=== PATIENT | male | born 1990 | race Caucasian/White ===

== ENCOUNTER → 2023-03-02 | Outpatient (CLI) | payer BC, SELFPAY ==
--- OUTSIDE RECORDS SUMMARY | 2023-03-02 12:21 | XMS RPT_ITS | CCD ---
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 Role Phone Linwood Nuñez Unavailable [phone] Chrissie Tatum Primary Care Provider RONALD CROOKS Attending Unavailable CHILINWOOD BOB Primary Care Unavailable LINWOOD NUÑEZ Attending Unavailable ZAPCHRISSIE ALSTON Attending Unavailabl e [facility] LINWOOD LEARY Primary Care Unavailable ZAPCHRISSIE ALSTON Attending Unavailabl e LINWOOD NUÑEZ Primary Care Unavailable RONALD CROOKS Attending Unavailable CHILINWOOD BOB Primary Care Unavailable ZAPCHRISSIE ALSTON Attending Unavailabl e ZAPPACHRISSIE Primary Care Unavailabl e Medications Completed/Discontinued Medications Medication Drug Class(es) Dates Sig (Normalized) Sig (Original) baclofen 20 mg oral tablet (3 sources) gamma-Aminobutyri c Acid-ergic Agonist Start: 02-22-2018 End: 03-24-2018 take 1 tablet by mouth at bedtime baclofen (LIORESAL) 20 MG tablet Indications: Acute intractable headache, unspecified headache type Take 1 (one) tablet (20 mg total) by mouth at bedtime . 30 tablet 0 02/22/2018 03/06/2018 Discontinued predniSONE (3 sources) Start: 02-22-2018 End: 03-06-2018 predniSONE (DELTASONE) 10 MG tablet Indications: Acute intractable headache, unspecified headache type Take 4 tablets for three days, 3 tablets for 3 days, 2 tablets for 3 days, 1 tablet for 3 days and then every other day until gone. . 31 tablet 0 02/22/2018 03/06/2018 Discontinued Problems Problem Classification Problem Date Documented Da te Episodic/Chronic Essential hypertension (4 sources) Hypertensive disorder; Translations: [Essential (primary) hypertension] Onset: 04-22-2018 04-22-2018 Chronic Headache; including migraine (4 sources) Migraine; Translations: [Other migraine, not intractable, without status migrainosus] Onset: 04-22-2018 04-22-2018 Chronic Headache; including migraine (8 sources) Headache; Translations: [Headache] Onset: 02-22-2018 02-22-2018 Episodic Residual codes; unclassified (3 sources) Altered mental status; Translations: [Altered mental status, unspecified altered mental status type] Onset: 03-06-2018 03-06-2018 Episodic Residual codes; unclassified (2 sources) Altered mental status, unspecified; Translations: [Altered mental status, unspecified] Onset: 03-06-2018 Episodic Vital Signs Date Time Vital Sign Value Performing Clinician Keturah almeiday 04-22-2018 14:38-0400 BP Diastolic 78 mm[Hg] [facility] 04-22-2018 14:38-0400 BP Systolic 130 mm[Hg] [facility] 04-22-2018 13:58-0400 BMI (Body Mass Index) 39.71 kg/m2 [facility] 04-22-2018 13:58-0400 Body Temperature 97.9 [degF] [facility] 04-22-2018 13:58-0400 Height 185.4 cm [facility] 04-22-2018 13:58-0400 Pulse (Heart Rate) 86 /min [facility] 04-22-2018 13:58-0400 Pulse Oximetry 98 % [facility] 04-22-2018 13:58-0400 Respiratory Rate 16 /min [facility] 04-22-2018 13:58-0400 Weight 136.53 kg [facility] 03-06-2018 13:51-0500 BMI (Body Mass Index) 42.04 kg/m2 [facility] 03-06-2018 13:51-0500 Body Temperature 98.1 [degF] [facility] 03-06-2018 13:51-0500 BP Diastolic 93 mm[Hg] [facility] 03-06-2018 13:51-0500 BP Systolic 132 mm[Hg] [facility] 03-06-2018 13:51-0500 Height 182.9 cm [facility] 03-06-2018 13:51-0500 Pulse (Heart Rate) 71 /min Chrissie Tatum [facility] 03-06-2018 13:51-0500 Pulse Oximetry 97 % Chrissie Tatum [facility] 03-06-2018 13:51-0500 Respiratory Rate 16 /min Chrissie Tatum [facility] 03-06-2018 13:51-0500 Weight 140.62 kg Chrissie Tatum [facility] 02-22-2018 13:12-0500 BMI (Body Mass Index) 41.37 kg/m2 Chrissie Tatum [facility] 02-22-2018 13:12-0500 Body Temperature 98.1 [degF] Chrissie Tatum [facility] 02-22-2018 13:12-0500 BP Diastolic 83 mm[Hg] Chrissie Tatum [facility] 02-22-2018 13:12-0500 BP Systolic 130 mm[Hg] Chrissie Tatum [facility] 02-22-2018 13:12-0500 Height 182.9 cm Chrissie Tatum [facility] 02-22-2018 13:12-0500 Pulse (Heart Rate) 84 /min Chrissie Tatum [facility] 02-22-2018 13:12-0500 Pulse Oximetry 97 % Chrissie Tatum [facility] 02-22-2018 13:12-0500 Respiratory Rate 16 /min Chrissie Tatum [facility] 02-22-2018 13:12-0500 Weight 138.35 kg Chrissie Tatum [facility] Encounters Encounter Date Encounter Type Care Provider Facility Start: 04-22-2018 End: 05-02-2018 Patient encounter procedure CHRISSIE TATUM [facility] Start: 04-22-2018 End: 04-22-2018 Office outpatient visit 15 minutes Chrissie Tatum Work Phone: [facility] Plan of Treatment Date Care Activity Detail Author Start: 02-12-2022 Tetanus vaccination TETANUS EVERY 10 YR [facility] Start: 07-22-2018 End: 07-22-2018 Office Visit 07/22/2018 Office Visit Primary Care Chrissie Tatum PA-C [address] [place] [address] [phone] [facility] Start: 04-22-2018 End: 04-22-2018 Ambulatory 04/22/2018 Office Visit Primary Care Chrissie Tatum PA-C [address] [place] [address] [phone] [facility] Payers Date Payer Category Payer Unknown [employer]/PATSY/HMO/PPO xxxxxxxxxxxx 2017-Present xxxxxxxxxxxx [id number] 2017 Unknown [id number] 1989 Unknown [id number] 1989 Unknown [id number] 1989 Unknown [id number] 1989 Unknown [id number] 1989 Unknown [id number] Unknown [employer]CIAL [id number] Effective for all dates [id number] Unknown [id number] Social History Date Type Detail Facility Start: 02-22-2018 End: 04-22-2018 Tobacco smoking status COIS Light tobacco smoker [facility] Not on file [facility] Start: 02-22-2018 Tobacco Comment 8-12 cigarettes/day [facility] Goals Date Patient Goal Desired Activity /State Instructions * Patient Instructions - Chrissie Tatum PA-C - 02/22/2018 1:48 PM EST Formatting of this note may be different from the original. Headache: Care Instructions Your Care Instructions Headaches have many possible causes. Most headaches aren't a sign of a more serious problem, and they will get better on their own. Home treatment may help you feel better faster. The doctor has checked you carefully, but problems can develop later. If you notice any problems ornew symptoms, get medical treatment right away. Follow-up care is a akhtar part of your treatment and safety. Be sure to make and go to all appointments, and call your doctor if you are having problems. It's also a good idea to know your test resultsand keep a list of the medicines you take. How can you care for yourself at home? Do not drive if you have taken a prescription pain medicine. Rest in a quiet, dark room until your headache is gone. Close your eyes and try to relax or go to sleep. Don't watch TV or read. Put a cold, moist cloth or cold pack on the painful area for 10 to 20 minutes at a time. Put a thincloth between the cold pack and your skin. Use a warm, moist towel or a heating pad set on low to relax tight shoulder and neck muscles. Have someone gently massage your neck and shoulders. Take pain medicines exactly as directed. ? If the doctor gave you a prescription medicine for pain, take it as prescribed. ? If you are not taking a prescription pain medicine, ask your doctor if you can take an trgs-vbl-hbdcklf medicine. Be careful not to take pain medicine more often than the instructions allow, because you may get worse or more frequent headaches when the medicine wears off. Do not ignore new symptoms that occur with a headache, such as a fever, weakness or numbness, vision changes, or confusion. These may be signs of a more serious problem. To prevent headaches Keep a headache diary so you can figure out what triggers your headaches. Avoiding triggers may help you prevent headaches. Record when each headache began, how long it lasted, and what the pain was like (throbbing, aching, stabbing, or dull). Write down any other symptoms you had with the headache, such as nausea, flashing lights or dark spots, or sensitivity to bright light or loud noise. Note if the headache occurred near your period. List anything that might have triggered the headache, such as certain foods (chocolate, cheese, wine) or odors, smoke, bright light, stress, or lack of sleep. Find healthy ways to deal with stress. Headaches are most common during or right after stressful times. Take time to relax before and after you do something that has caused a headache in the past. Try to keep your muscles relaxed by keeping good posture. Check your jaw, face, neck, and shoulder muscles for tension, and try relaxing them. When sitting at a desk, change positions often, and stretch for 30 seconds each hour. Get plenty of sleep and exercise. Eat regularly and well. Long periods without food can trigger a headache. Treat yourself to a massage. Some people find that regular massages are very helpful in relieving tension. Limit caffeine by not drinking too much coffee, tea, or soda. But don't quit caffeine suddenly, because that can also give you headaches. Reduce eyestrain from computers by blinking frequently and looking away from the computer screen every so often. Make sure you have proper eyewear and that your monitor is set up properly, about an arm's length away. Seek help if you have depression or anxiety. Your headaches may be linked to these conditions. Treatment can both prevent headaches and help with symptoms of anxiety or depression. When should you call for help? Call 911 anytime you think you may need emergency care. For example, call if: You have signs of a stroke. These may include: ? Sudden numbness, paralysis, or weakness in your face, arm, or leg, especially on only one side ofyour body. ? Sudden vision changes. ? Sudden trouble speaking. ? Sudden confusion or trouble understanding simple statements. ? Sudden problems with walking or balance. ? A sudden, severe headache that is different from past headaches. Call your doctor now or seek immediate medical care if: You have a new or worse headache. Your headache gets much worse. Where can you learn more? Log into your personal health record on https://[employer] and enter M271 in the Education box to learn more about Headache: Care Instructions. Current as of: July 15, 2017 Content Version: 11.20051732-1085 [employer]. Care instructions adapted under license by your healthcare professional. If you have questions about a medical condition or this instruction, always ask your healthcare professional. [employer] disclaims any warranty or liability for your use of this information. Neck Pain: Care Instructions Your Care Instructions You can have neck pain anywhere from the bottom of your head to the top of your shoulders. It can spread to the upper back or arms. Injuries, painting a ceiling, sleeping with your neck twisted, staying in one position for too long, and many other activities can cause neck pain. Most neck pain gets better with home care. Your doctor may recommend medicine to relieve pain or relax your muscles. He or she may suggest exercise and physical therapy to increase flexibility and relieve stress. You may need to wear a special (cervical) collar to support your neck for a day or two. Follow-up care is a akhtar part of your treatment and safety. Be sure to make and go to all appointments, and call your doctor if you are having problems. It's also a good idea to know your test resultsand keep a list of the medicines you take. How can you care for yourself at home? Try using a heating pad on a low or medium setting for 15 to 20 minutes every 2 or 3 hours. Try a warm shower in place of one session with the heating pad. You can also try an ice pack for 10 to 15 minutes every 2 to 3 hours. Put a thin cloth between the ice and your skin. Take pain medicines exactly as directed. ? If the doctor gave you a prescription medicine for pain, take it as prescribed. ? If you are not taking a prescription pain medicine, ask your doctor if you can take an mmxk-qss-mjvqndr medicine. If your doctor recommends a cervical collar, wear it exactly as directed. When should you call for help? Call your doctor now or seek immediate medical care if: You have new or worsening numbness in your arms, buttocks or legs. You have new or worsening weakness in your arms or legs. (This could make it hard to stand up.) You lose control of your bladder or bowels. Watch closely for changes in your health, and be sure to contact your doctor if: Your neck pain is getting worse. You are not getting better after 1 week. You do not get better as expected. Where can you learn more? Log into your personal health record on https://[email or web address] and enter V723 in the Education box to learn more about Neck Pain: Care Instructions. Current as of: November 01, 2017 Content Version: 11.9 9214-8770 [employer]. Care instructions adapted under license by your healthcare professional. If you have questions about a medical condition or this instruction, always ask your healthcare professional. [employer] disclaims any warranty or liability for your use of this information. Neck: Exercises Your Care Instructions Here are some examples of typical rehabilitation exercises for your condition. Start each exercise slowly. Ease off the exercise if you start to have pain. Your doctor or physical therapist will tell you when you can start these exercises and which ones will work best for you. How to do the exercises Neck stretch 1. This stretch works best if you keep your shoulder down as you lean away from it. To help you remember to do this, start by relaxing your shoulders and lightly holding on to your thighs or your chair. 2. Tilt your head toward your shoulder and hold for 15 to 30 seconds. Let the weight of your head stretch your muscles. 3. If you would like a little added stretch, use your hand to gently and steadily pull your head toward your shoulder. For example, keeping your right shoulder down, lean your head to the left. 4. Repeat 2 to 4 times toward each shoulder. Diagonal neck stretch 1. Turn your head slightly toward the direction you will be stretching, and tilt your head diagonally toward your chest and hold for 15 to 30 seconds. 2. If you would like a little added stretch, use your hand to gently and steadily pull your head forward on the diagonal. 3. Repeat 2 to 4 times toward each side. Dorsal glide stretch 1. Sit or stand tall and look straight ahead. 2. Slowly tuck your chin as you glide your head backward over your body 3. Hold for a count of 6, and then relax for up to 10 seconds. 4. Repeat 8 to 12 times. Chest and shoulder stretch 1. Sit or stand tall and glide your head backward as in the dorsal glide stretch. 2. Raise both arms so that your hands are next to your ears. 3. Take a deep breath, and as you breathe out, lower your elbows down and behind your back. You will feel your shoulder blades slide down and together, and at the same time you will feel a stretch across your chest and the front of your shoulders. 4. Hold for about 6 seconds, and then relax for up to 10 seconds. 5. Repeat 8 to 12 times. Strengthening: Hands on head 1. Move your head backward, forward, and side to side against gentle pressure from your hands, holding each position for about 6 seconds. 2. Repeat 8 to 12 times. Follow-up care is a akhtar part of your treatment and safety. Be sure to make and go to all appointments, and call your doctor if you are having problems. It's also a good idea to know your test resultsand keep a list of the medicines you take. Where can you learn more? Log into your personal health record on https://[employer] and enter P975 in the Education box to learn more about Neck: Exercises. Current as of: November 01, 2017 Content Version: 11.9 1114-1976 [employer]. Care instructions adapted under license by your healthcare professional. If you have questions about a medical condition or this instruction, always ask your healthcare professional. [employer] disclaims any warranty or liability for your use of this information. Migraine Headache: Care Instructions Your Care Instructions Migraines are painful, throbbing headaches that often start on one side of the head. They may causenausea and vomiting and make you sensitive to light, sound, or smell. Without treatment, migraines can last from 4 hours to a few days. Medicines can help prevent migraines or stop them after they have started. Your doctor can help you find which ones work best for you. Follow-up care is a akhtar part of your treatment and safety. Be sure to make and go to all appointments, and call your doctor if you are having problems. It's also a good idea to know your test resultsand keep a list of the medicines you take. How can you care for yourself at home? Do not drive if you have taken a prescription pain medicine. Rest in a quiet, dark room until your headache is gone. Close your eyes, and try to relax or go to sleep. Don't watch TV or read. Put a cold, moist cloth or cold pack on the painful area for 10 to 20 minutes at a time. Put a thincloth between the cold pack and your skin. Use a warm, moist towel or a heating pad set on low to relax tight shoulder and neck muscles. Have someone gently massage your neck and shoulders. Take your medicines exactly as prescribed. Call your doctor if you think you are having a problem with your medicine. You will get more details on the specific medicines your doctor prescribes. Be careful not to take pain medicine more often than the instructions allow. You could get worse ormore frequent headaches when the medicine wears off. To prevent migraines Keep a headache diary so you can figure out what triggers your headaches. Avoiding triggers may help you prevent headaches. Record when each headache began, how long it lasted, and what the pain was like. (Was it throbbing, aching, stabbing, or dull?) Write down any other symptoms you had with the h johndache, such as nausea, flashing lights or dark spots, or sensitivity to bright light or loud noise. Note if the headache occurred near your period. List anything that might have triggered the headache. Triggers may include certain foods (chocolate, cheese, wine) or odors, smoke, bright light, stress, or lack of sleep. If your doctor has prescribed medicine for your migraines, take it as directed. You may have medicine that you take only when you get a migraine and medicine that you take all the time to help prevent migraines. ? If your doctor has prescribed medicine for when you get a headache, take it at the first sign of a migraine, unless your doctor has given you other instructions. ? If your doctor has prescribed medicine to prevent migraines, take it exactly as prescribed. Call your doctor if you think you are having a problem with your medicine. Find healthy ways to deal with stress. Migraines are most common during or right after stressful times. Take time to relax before and after you do something that has caused a migraine in the past. Try to keep your muscles relaxed by keeping good posture. Check your jaw, face, neck, and shoulder muscles for tension. Try to relax them. When you sit at a desk, change positions often. And make sure to stretch for 30 seconds each hour. Get plenty of sleep and exercise. Eat meals on a regular schedule. Avoid foods and drinks that often trigger migraines. These includechocolate, alcohol (especially red wine and port), aspartame, monosodium glutamate (MSG), and some additives found in foods (such as hot dogs, benton, cold cuts, aged cheeses, and pickled foods). Limit caffeine. Don't drink too much coffee, tea, or soda. But don't quit caffeine suddenly. That can also give you migraines. Do not smoke or allow others to smoke around you. If you need help quitting, talk to your doctor about stop-smoking programs and medicines. These can increase your chances of quitting for good. If you are taking control pills or hormone therapy, talk to your doctor about whether they are triggering your migraines. When should you call for help? Call 911 anytime you think you may need emergency care. For example, call if: You have signs of a stroke. These may include: ? Sudden numbness, paralysis, or weakness in your face, arm, or leg, especially on only one side ofyour body. ? Sudden vision changes. ? Sudden trouble speaking. ? Sudden confusion or trouble understanding simple statements. ? Sudden problems with walking or balance. ? A sudden, severe headache that is different from past headaches. Call your doctor now or seek immediate medical care if: You have new or worse nausea and vomiting. You have a new or higher fever. Your headache gets much worse. Watch closely for changes in your health, and be sure to contact your doctor if: You are not getting better after 2 days (48 hours). Where can you learn more? Log into your personal health record on https://[employer] and enter U690 in the Education box to learn more about Migraine Headache: Care Instructions. Current as of: July 15, 2017 Content Version: .[id number] [employer]. Care instructions adapted under license by your healthcare professional. If you have questions about a medical condition or this instruction, always ask your healthcare professional. [employer] disclaims any warranty or liability for your use of this information. Problem List Items Addressed This Visit Other Acute intractable headache - Primary Today you are here to establish with our office. Your main concern today is the headache you have been experiencing. I am fairly certain this is all related to your job. 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 I would like you to take the medication as discussed duringthe visit. The Prednisone is a steroid that works on areas of inflammation. In this case, your neck. The Baclofen is a muscle relaxer, this will help you relax at night and help you sleep comfortably. Muscle relaxers are NOT to be used when operating machinery or when you attention is necessary on a task. They make you drowsy. Please note that it will take 6-8 weeks to fully recover. It is important that you do the exercisesprovided during the visit today. Should any new symptoms arise, I would like to see you back sooner. Otherwise, lets see you back in 8 weeks. Please fast for this visit as I would like to do blood work at that time. Thank you. Relevant Medications predniSONE (DELTASONE) 10 MG tablet baclofen (LIORESAL) 20 MG tablet in this encounter* Patient Instructions* Chrissie Tatum PA-C - 03/06/2018 2:20 PM EST Headache: Care Instructions Your Care Instructions Headaches have many possible causes. Most headaches aren't a sign of a more serious problem, and they will get better on their own. Home treatment may help you feel better faster. The doctor has checked you carefully, but problems can develop later. If you notice any problems ornew symptoms, get medical treatment right away. Follow-up care is a akhtar part of your treatment and safety. Be sure to make and go to all appointments, and call your doctor if you are having problems. It's also a good idea to know your test resultsand keep a list of the medicines you take. How can you care for yourself at home? Do not drive if you have taken a prescription pain medicine. Rest in a quiet, dark room until your headache is gone. Close your eyes and try to relax or go to sleep. Don't watch TV or read. Put a cold, moist cloth or cold pack on the painful area for 10 to 20 minutes at a time. Put a thincloth between the cold pack and your skin. Use a warm, moist towel or a heating pad set on low to relax tight shoulder and neck muscles. Have someone gently massage your neck and shoulders. Take pain medicines exactly as directed. ? If the doctor gave you a prescription medicine for pain, take it as prescribed. ? If you are not taking a prescription pain medicine, ask your doctor if you can take an ctly-ruj-vlqyypf medicine. Be careful not to take pain medicine more often than the instructions allow, because you may get worse or more frequent headaches when the medicine wears off. Do not ignore new symptoms that occur with a headache, such as a fever, weakness or numbness, vision changes, or confusion. These may be signs of a more serious problem. To prevent headaches Keep a headache diary so you can figure out what triggers your headaches. Avoiding triggers may help you prevent headaches. Record when each headache began, how long it lasted, and what the pain was like (throbbing, aching, stabbing, or dull). Write down any other symptoms you had with the headache, such as nausea, flashing lights or dark spots, or sensitivity to bright light or loud noise. Note if the headache occurred near your period. List anything that might have triggered the headache, such as certain foods (chocolate, cheese, wine) or odors, smoke, bright light, stress, or lack of sleep. Find healthy ways to deal with stress. Headaches are most common during or right after stressful times. Take time to relax before and after you do something that has caused a headache in the past. Try to keep your muscles relaxed by keeping good posture. Check your jaw, face, neck, and shoulder muscles for tension, and try relaxing them. When sitting at a desk, change positions often, and stretch for 30 seconds each hour. Get plenty of sleep and exercise. Eat regularly and well. Long periods without food can trigger a headache. Treat yourself to a massage. Some people find that regular massages are very helpful in relieving tension. Limit caffeine by not drinking too much coffee, tea, or soda. But don't quit caffeine suddenly, because that can also give you headaches. Reduce eyestrain from computers by blinking frequently and looking away from the computer screen every so often. Make sure you have proper eyewear and that your monitor is set up properly, about an arm's length away. Seek help if you have depression or anxiety. Your headaches may be linked to these conditions. Treatment can both prevent headaches and help with symptoms of anxiety or depression. When should you call for help? Call 911 anytime you think you may need emergency care. For example, call if: You have signs of a stroke. These may include: ? Sudden numbness, paralysis, or weakness in your face, arm, or leg, especially on only one side ofyour body. ? Sudden vision changes. ? Sudden trouble speaking. ? Sudden confusion or trouble understanding simple statements. ? Sudden problems with walking or balance. ? A sudden, severe headache that is different from past headaches. Call your doctor now or seek immediate medical care if: You have a new or worse headache. Your headache gets much worse. Where can you learn more? Log into your personal health record on [email or web address] and enter M271 in the Education box to learn more about Headache: Care Instructions. Current as of: July 15, 2017 Content Version: [id number] [employer]. Care instructions adapted under license by your healthcare professional. If you have questions about a medical condition or this instruction, always ask your healthcare professional. [employer] disclaims any warranty or liability for your use of this information. CT Scan of the Head: About This Test What is it? A CT (computed tomography) scan uses X-rays to make detailed pictures of your body and the structures inside your body. A CT scan of the head can give your doctor information about your eyes, the bones of your face and nose, your inner ear, and your brain. During the test, you will lie on a table that is attached to the CT scanner. The CT scanner is a large doughnut-shaped machine. Why is this test done? A CT scan of the head can help find the cause of symptoms that may mean you have a brain injury or bleeding inside your head. It can also find a tumor and damage caused by a stroke and help find the best treatment for the cause of a stroke. How can you prepare for the test? Talk to your doctor about all your health conditions before the test. For example, tell your doctorif: You are or might be . You are allergic to any medicines. You have diabetes. You take metformin. You are . You get nervous in confined spaces. You may need medicine to help you relax. What happens before the test? You may have to take off jewelry, glasses, or hearing aids. Wear comfortable, loose-fitting clothes. You may have contrast material (dye) put into your arm through a tube called an IV. Contrast material helps doctors see specific organs, blood vessels, and most tumors. What happens during the test? You will lie on a table that is attached to the CT scanner. Straps will hold your head still but your face will not be covered. The table will slide into the round opening of the scanner. The table will move during the scan. The scanner moves inside the doughnut-shaped casing around your body. You will be asked to hold still during the scan. You may be asked to hold your breath for short periods. You may be alone in the scanning room, but a technologist will be watching you through a window andtalking with you during the test. What else should you know about the test? A CT scan does not hurt. If a dye is used, you may feel a quick sting or pinch when the IV is started. The dye may make you feel warm and flushed and give you a metallic taste in your mouth. Some people feel sick to their stomach or get a headache. If you breastfeed and are concerned about whether the dye used in this test is safe, talk to your doctor. Most experts believe that very little dye passes into breast milk and even less is passed on to the baby. But if you prefer, you can store some of your breast milk ahead of time and use it for a day or two after the test. There is a small chance of getting cancer from some types of CT scans. The risk is higher in children, young adults, and people who have many radiation tests. If you are concerned about this risk, talk to your doctor about the benefits and risks of a CT scan and confirm that the test is needed. How long does the test take? The test will take about 30 to 60 minutes. Most of this time is spent getting ready for the scan. The actual test only takes a few minutes. What happens after the test? You will probably be able to go home right away. You can go back to your usual activities right away. Drink plenty of fluids for 24 hours after the test if dye was used, unless your doctor tells you not to. When should you call for help? Watch closely for changes in your health, and be sure to contact your doctor if you have any problems. Follow-up care is a akhtar part of your treatment and safety. Be sure to make and go to all appointments, and call your doctor if you are having problems. It's also a good idea to keep a list of the medicines you take. Ask your doctor when you can expect to have your test results. Where can you learn more? Log into your personal health record on [email or web address] and enter Y628 in the Education box to learn more about CT Scan of the Head: About This Test. Current as of: August 06, 2017 Content Version: 11.9 [id number] [employer]. Care instructions adapted under license by your healthcare professional. If you have questions about a medical condition or this instruction, always ask your healthcare professional. [employer] disclaims any warranty or liability for your use of this information. Problem List Items Addressed This Visit Other Acute intractable headache - Primary At this time, you are having worsening symptoms. This warrants further treatment, which I am strongly suggest he let the Emergency Department provide. We have tried NSAIDs, Triptans, steroids and muscle relaxers. All have failed. Now you are complaining of forgetfulness and worsening headache. You are extremely reluctant to go to the ER, but after discussing this with Dr. Nuñez, we agreed you would go. Your is picking you up to take you as I am strongly urging you not to drive until we have answers. I have called and [facility] is aware that you will be heading over to them once your arrives. It is my strong recommendation that you refrain from any activities that require your f ull attention (ie. Work, driving, operating machinery, etc). Other Visit Diagnoses Screening for diabetes mellitus Screening for hyperlipidemia in this encounter* Patient Instructions* Chrissie Tatum PA-C - 04/22/2018 3:03 PM EDT Problem List Items Addressed This Visit Cardiovascular and Mediastinum Hypertension - Primary Normal BP is 110/70. For every 20 point elevation of the systolic (top number) the risk of complications of elevated BP double. For every 10 points above 70 (bottom number) on the diastolic the risk of complication double. So, someone with a BP of 158/85 is 8 times more likely to have a complication of heart attack, stroke, vascular disease, retinal disease, than someone with a BP of 110/70. Eat meat, vegetables, nuts and seeds, some fruit, very little starch and absolutely no sugar. If you can grow it or kill it, then that's what you should be eating..... Chicken, turkey, fish pork, beef, ALL vegetables and fruit. If it is processed or you can not pronounce the ingredients, do not eat it! Shop the outside perimeter of the grocery store. Listen to your body, if you are hungry all the time you may need to increase your intake of healthyveggies and small healthy snacks. Eat whole, healthy foods and you won't need to count calories. Increase your activity level; the more you move your body the healthier you will be and the better you will feel! Diet and Exercise is not a fad, it really works! Migraine Migraine Headache: Care Instructions Your Care Instructions Migraines are painful, throbbing headaches that often start on one side of the head. They may causenausea and vomiting and make you sensitive to light, sound, or smell. Without treatment, migraines can last from 4 hours to a few days. Medicines can help prevent migraines or stop them after they have started. Your doctor can help you find which ones work best for you. Follow-up care is a akhtar part of your treatment and safety. Be sure to make and go to all appointments, and call your doctor if you are having problems. It's also a good idea to know your test resultsand keep a list of the medicines you take. How can you care for yourself at home? Do not drive if you have taken a prescription pain medicine. Rest in a quiet, dark room until your headache is gone. Close your eyes, and try to relax or go to sleep. Don't watch TV or read. Put a cold, moist cloth or cold pack on the painful area for 10 to 20 minutes at a time. Put a thincloth between the cold pack and your skin. Use a warm, moist towel or a heating pad set on low to relax tight shoulder and neck muscles. Have someone gently massage your neck and shoulders. Take your medicines exactly as prescribed. Call your doctor if you think you are having a problem with your medicine. You will get more details on the specific medicines your doctor prescribes. Be careful not to take pain medicine more often than the instructions allow. You could get worse ormore frequent headaches when the medicine wears off. To prevent migraines Keep a headache diary so you can figure out what triggers your headaches. Avoiding triggers may help you prevent headaches. Record when each headache began, how long it lasted, and what the pain was like. (Was it throbbing, aching, stabbing, or dull?) Write down any other symptoms you had with the h eadache, such as nausea, flashing lights or dark spots, or sensitivity to bright light or loud noise. Note if the headache occurred near your period. List anything that might have triggered the headache. Triggers may include certain foods (chocolate, cheese, wine) or odors, smoke, bright light, stress, or lack of sleep. If your doctor has prescribed medicine for your migraines, take it as directed. You may have medicine that you take only when you get a migraine and medicine that you take all the time to help prevent migraines. ? If your doctor has prescribed medicine for when you get a headache, take it at the first sign of a migraine, unless your doctor has given you other instructions. ? If your doctor has prescribed medicine to prevent migraines, take it exactly as prescribed. Call your doctor if you think you are having a problem with your medicine. Find healthy ways to deal with stress. Migraines are most common during or right after stressful times. Take time to relax before and after you do something that has caused a migraine in the past. Try to keep your muscles relaxed by keeping good posture. Check your jaw, face, neck, and shoulder muscles for tension. Try to relax them. When you sit at a desk, change positions often. And make sure to stretch for 30 seconds each hour. Get plenty of sleep and exercise. Eat meals on a regular schedule. Avoid foods and drinks that often trigger migraines. These includechocolate, alcohol (especially red wine and port), aspartame, monosodium glutamate (MSG), and some additives found in foods (such as hot dogs, benton, cold cuts, aged cheeses, and pickled foods). Limit caffeine. Don't drink too much coffee, tea, or soda. But don't quit caffeine suddenly. That can also give you migraines. Do not smoke or allow others to smoke around you. If you need help quitting, talk to your doctor about stop-smoking programs and medicines. These can increase your chances of quitting for good. If you are taking control pills or hormone therapy, talk to your doctor about whether they are triggering your migraines. When should you call for help? Call 911 anytime you think you may need emergency care. For example, call if: You have signs of a stroke. These may include: ? Sudden numbness, paralysis, or weakness in your face, arm, or leg, especially on only one side ofyour body. ? Sudden vision changes. ? Sudden trouble speaking. ? Sudden confusion or trouble understanding simple statements. ? Sudden problems with walking or balance. ? A sudden, severe headache that is different from past headaches. Call your doctor now or seek immediate medical care if: You have new or worse nausea and vomiting. You have a new or higher fever. Your headache gets much worse. Watch closely for changes in your health, and be sure to contact your doctor if: You are not getting better after 2 days (48 hours). Where can you learn more? Log into your personal health record on [email or web address] and enter U690 in the Education box to learn more about Migraine Headache: Care Instructions. Current as of: July 15, 2017 Content Version: .[id number] [employer]. Care instructions adapted under license by your healthcare professional. If you have questions about a medical condition or this instruction, always ask your healthcare professional. [employer] disclaims any warranty or liability for your use of this information. Low Sodium Diet (2,000 Milligram): Care Instructions Your Care Instructions Too much sodium causes your body to hold on to extra water. This can raise your blood pressure and force your heart and kidneys to work harder. In very serious cases, this could cause you to be put in the hospital. It might even be life- threatening. By limiting sodium, you will feel better and lower your risk of serious problems. The most common source of sodium is salt. People get most of the salt in their diet from canned, prepared, and packaged foods. Fast food and restaurant meals also are very high in sodium. Your doctorwill probably limit your sodium to less than 2,000 milligrams (mg) a day. This limit counts all thesodium in prepared and packaged foods and any salt you add to your food. Follow-up care is a akhtar part of your treatment and safety. Be sure to make and go to all appointments, and call your doctor if you are having problems. It's also a good idea to know your test resultsand keep a list of the medicines you take. How can you care for yourself at home? Read food labels Read labels on cans and food packages. The labels tell you how much sodium is in each serving. Makesure that you look at the serving size. If you eat more than the serving size, you have eaten more sodium. Food labels also tell you the Percent Daily Value for sodium. Choose products with low Percent Daily Values for sodium. Be aware that sodium can come in forms other than salt, including monosodium glutamate (MSG), sodium citrate, and sodium bicarbonate (baking soda). MSG is often added to food. When you eat out,you can sometimes ask for food without MSG or added salt. Buy low-sodium foods Buy foods that are labeled unsalted (no salt added), sodium-free (less than 5 mg of sodium per serving), or low-sodium (less than 140 mg of sodium per serving). Foods labeled reduced-sodium and light sodium may still have too much sodium. Be sure to read the label to see how much sodium you are getting. Buy fresh vegetables, or frozen vegetables without added sauces. Buy low-sodium versions of canned vegetables, soups, and other canned goods. Prepare low-sodium meals Cut back on the amount of salt you use in cooking. This will help you adjust to the taste. Do not add salt after cooking. One teaspoon of salt has about 2,300 mg of sodium. Take the salt shaker off the table. Flavor your food with garlic, lemon juice, onion, vinegar, herbs, and spices. Do not use soy sauce,lite soy sauce, steak sauce, onion salt, garlic salt, celery salt, mustard, or ketchup on your food. Use low-sodium salad dressings, sauces, and ketchup. Or make your own salad dressings and sauces without adding salt. Use less salt (or none) when recipes call for it. You can often use half the salt a recipe calls for without losing flavor. Other foods such as rice, pasta, and grains do not need added salt. Rinse canned vegetables, and cook them in fresh water. This removes some but not all of the salt. Avoid water that is naturally high in sodium or that has been treated with water softeners, which add sodium. Call your local water company to find out the sodium content of your water supply. If youbuy bottled water, read the label and choose a sodium-free brand. Avoid high-sodium foods Avoid eating: ? Smoked, cured, salted, and canned meat, fish, and poultry. ? Ham, benton, hot dogs, and luncheon meats. ? Regular, hard, and processed cheese and regular peanut butter. ? Crackers with salted tops, and other salted snack foods such as pretzels, chips, and salted popcorn. ? Frozen prepared meals, unless labeled low-sodium. ? Canned and dried soups, broths, and bouillon, unless labeled sodium-free or low-sodium. ? Canned vegetables, unless labeled sodium-free or low-sodium. ? Irish fries, pizza, tacos, and other fast foods. ? Pickles, olives, ketchup, and other condiments, especially soy sauce, unless labeled sodium-free or low-sodium. Where can you learn more? Log into your personal health record on [email or web address] and enter V843 in the Education box to learn more about Low Sodium Diet (2,000 Milligram): Care Instructions. Current as of: May 09, 2017 Content Version: 11.9 2473-6515 [employer]. Care instructions adapted under license by your healthcare professional. If you have questions about a medical condition or this instruction, always ask your healthcare professional. [employer] disclaims any warranty or liability for your use of this information. High Blood Pressure: Care Instructions Overview It's normal for blood pressure to go up and down throughout the day. But if it stays up, you have high blood pressure. Another name for high blood pressure is hypertension. Despite what a lot of people think, high blood pressure usually doesn't cause headaches or make youfeel dizzy or lightheaded. It usually has no symptoms. But it does increase your risk of stroke, heart attack, and other problems. You and your doctor will talk about your risks of these problems based on your blood pressure. Your doctor will give you a goal for your blood pressure. Your goal will be based on your health and your age. Lifestyle changes, such as eating healthy and being active, are always important to help lower blood pressure. You might also take medicine to reach your blood pressure goal. Follow-up care is a akhtar part of your treatment and safety. Be sure to make and go to all appointments, and call your doctor if you are having problems. It's also a good idea to know your test resultsand keep a list of the medicines you take. How can you care for yourself at home? Medical treatment If you stop taking your medicine, your blood pressure will go back up. You may take one or more types of medicine to lower your blood pressure. Be safe with medicines. Take your medicine exactly as prescribed. Call your doctor if you think you are having a problem with your medicine. Talk to your doctor before you start taking aspirin every day. Aspirin can help certain people lower their risk of a heart attack or stroke. But taking aspirin isn't right for everyone, because it can cause serious bleeding. See your doctor regularly. You may need to see the doctor more often at first or until your blood pressure comes down. If you are taking blood pressure medicine, talk to your doctor before you take decongestants or anti-inflammatory medicine, such as ibuprofen. Some of these medicines can raise blood pressure. Learn how to check your blood pressure at home. Lifestyle changes Stay at a healthy weight. This is especially important if you put on weight around the waist. Losing even 10 pounds can help you lower your blood pressure. If your doctor recommends it, get more exercise. Walking is a good choice. Bit by bit, increase theamount you walk every day. Try for at least 30 minutes on most days of the week. You also may want to swim, bike, or do other activities. Avoid or limit alcohol. Talk to your doctor about whether you can drink any alcohol. Try to limit how much sodium you eat to less than 2,300 milligrams (mg) a day. Your doctor may ask you to try to eat less than 1,500 mg a day. Eat plenty of fruits (such as bananas and oranges), vegetables, legumes, whole grains, and low-fat dairy products. Lower the amount of saturated fat in your diet. Saturated fat is found in animal products such as milk, cheese, and meat. Limiting these foods may help you lose weight and also lower your risk for heart disease. Do not smoke. Smoking increases your risk for heart attack and stroke. If you need help quitting, talk to your doctor about stop-smoking programs and medicines. These can increase your chances of quitting for good. When should you call for help? Call 911 anytime you think you may need emergency care. This may mean having symptoms that suggest that your blood pressure is causing a serious heart or blood vessel problem. Your blood pressure maybe over 180/120. For example, call 911 if: You have symptoms of a heart attack. These may include: ? Chest pain or pressure, or a strange feeling in the chest. ? Sweating. ? Shortness of breath. ? Nausea or vomiting. ? Pain, pressure, or a strange feeling in the back, neck, jaw, or upper belly or in one or both shoulders or arms. ? Lightheadedness or sudden weakness. ? A fast or irregular heartbeat. You have symptoms of a stroke. These may include: ? Sudden numbness, tingling, weakness, or loss of movement in your face, arm, or leg, especially ononly one side of your body. ? Sudden vision changes. ? Sudden trouble speaking. ? Sudden confusion or trouble understanding simple statements. ? Sudden problems with walking or balance. ? A sudden, severe headache that is different from past headaches. You have severe back or belly pain. Do not wait until your blood pressure comes down on its own. Get help right away. Call your doctor now or seek immediate care if: Your blood pressure is much higher than normal (such as 180/120 or higher), but you don't have symptoms. You think high blood pressure is causing symptoms, such as: ? Severe headache. ? Blurry vision. Watch closely for changes in your health, and be sure to contact your doctor if: Your blood pressure measures higher than your doctor recommends at least 2 times. That means the top number is higher or the bottom number is higher, or both. You think you may be having side effects from your blood pressure medicine. Where can you learn more? Log into your personal health record on https://[employer] and enter X567 in the Education box to learn more about High Blood Pressure: Care Instructions. Current as of: September 02, 2017 Content Version: .[id number] [employer]. Care instructions adapted under license by your healthcare professional. If you have questions about a medical condition or this instruction, always ask your healthcare professional. [employer] disclaims any warranty or liability for your use of this information. Eating Healthy Foods: Care Instructions Your Care Instructions Eating healthy foods can help lower your risk for disease. Healthy food gives you energy and keeps your heart strong, your brain active, your muscles working, and your bones strong. A healthy diet includes a variety of foods from the basic food groups: grains, vegetables, fruits, milk and milk products, and meat and beans. Some people may eat more of their favorite foods from only one food group and, as a result, miss getting the nutrients they need. So, it is important to payattention not only to what you eat but also to what you are missing from your diet. You can eat a healthy, balanced diet by making a few small changes. Follow-up care is a akhtar part of your treatment and safety. Be sure to make and go to all appointments, and call your doctor if you are having problems. It's also a good idea to know your test resultsand keep a list of the medicines you take. How can you care for yourself at home? Look at what you eat Keep a food diary for a week or two and record everything you eat or drink. Track the number of servings you eat from each food group. For a balanced diet every day, eat a variety of: ? 6 or more ounce-equivalents of grains, such as cereals, breads, crackers, rice, or pasta, every day. An ounce-equivalent is 1 slice of bread, 1 cup of owggg-de-huf cereal, or cup of cooked rice, cooked pasta, or cooked cereal. ? 2 cups of vegetables, especially: Dark-green vegetables such as broccoli and spinach. [place] vegetables such as carrots and sweet potatoes. Dry beans (such as perales and kidney beans) and peas (such as lentils). ? 2 cups of fresh, frozen, or canned fruit. A small apple or 1 banana or orange equals 1 cup. ? 3 cups of nonfat or low-fat milk, yogurt, or other milk products. ? 5 ounces of meat and beans, such as chicken, fish, lean meat, beans, nuts, and seeds. One egg, 1 tablespoon of peanut butter, ounce nuts or seeds, or cup of cooked beans equals 1 ounce of meat. Learn how to read food labels for serving sizes and ingredients. Fast-food and convenience-food meals often contain few or no fruits or vegetables. Make sure you eat some fruits and vegetables to make the meal more nutritious. Look at your food diary. For each food group, add up what you have eaten and then divide the total by the number of days. This will give you an idea of how much you are eating from each food group. See if you can find some ways to change your diet to make it more healthy. Start small Do not try to make dramatic changes to your diet all at once. You might feel that you are missing out on your favorite foods and then be more likely to fail. Start slowly, and gradually change your habits. Try some of the following: ? Use whole wheat bread instead of white bread. ? Use nonfat or low-fat milk instead of whole milk. ? Eat brown rice instead of white rice, and eat whole wheat pasta instead of white-flour pasta. ? Try low-fat cheeses and low-fat yogurt. ? Add more fruits and vegetables to meals and have them for snacks. ? Add lettuce, tomato, cucumber, and onion to sandwiches. ? Add fruit to yogurt and cereal. Enjoy food You can still eat your favorite foods. You just may need to eat less of them. If your favorite foods are high in fat, salt, and sugar, limit how often you eat them, but do not cut them out entirely. Eat a wide variety of foods. Make healthy choices when eating out The type of restaurant you choose can help you make healthy choices. Even fast- food chains are now offering more low-fat or healthier choices on the menu. Choose smaller portions, or take half of your meal home. When eating out, try: ? A veggie pizza with a whole wheat crust or grilled chicken (instead of sausage or pepperoni). ? Pasta with roasted vegetables, grilled chicken, or marinara sauce instead of cream sauce. ? A vegetable wrap or grilled chicken wrap. ? Broiled or poached food instead of fried or breaded items. Make healthy choices easy Buy packaged, prewashed, qryia-km-wmo fresh vegetables and fruits, such as baby carrots, salad mixes, and chopped or shredded broccoli and cauliflower. Buy packaged, presliced fruits, such as melon or pineapple. Choose 100% fruit or vegetable juice instead of soda. Limit juice intake to 4 to 6 oz ( to cup) a day. Blend low-fat yogurt, fruit juice, and canned or frozen fruit to make a smoothie for breakfast or asnack. Where can you learn more? Log into your personal health record on [email or web address]://[email or web address] and enter T756 in the Education box to learn more about Eating Healthy Foods: Care Instructions. Current as of: May 09, 2017 Content Version: 11.9 1134-0656 [employer]. Care instructions adapted under license by your healthcare professional. If you have questions about a medical condition or this instruction, always ask your healthcare professional. [employer] disclaims any warranty or liability for your use of this information. Learning About Dietary Guidelines What are the Dietary Guidelines for Americans? Dietary Guidelines for Americans provide tips for eating well and staying healthy. This helps reduce the risk for long-term (chronic) diseases. These adult guidelines from the [place] government recommend that you: Eat lots of fruits, vegetables, whole grains, and low-fat or nonfat dairy products. Try to balance your eating with your activity. This helps you stay at a healthy weight. Drink alcohol in moderation, if at all. Limit foods high in salt, saturated fat, trans fat, and added sugar. What is MyPlate? MyPlate is the [place] government's food guide. It can help you make your own well- balanced eating plan. A balanced eating plan means that you eat enough, but not too much, and that your food gives you the nutrients you need to stay healthy. MyPlate focuses on eating plenty of whole grains, fruits, and vegetables, and on limiting fat and sugar. It is available online at www.ChooseMyPlate.gov. How can you get started? MyPlate suggests that most adults eat certain amounts from the different food groups: Grains Eat 5 to 8 ounces of grains each day. Half of those should be whole grains. Choose whole-grain breads, cold and cooked cereals and grains, pasta (without creamy sauces), hard rolls, or low-fat or fat-free crackers. Vegetables Eat 2 to 3 cups of vegetables every day. They contain little if any fat. And they have lots of nutrients that help protect against heart disease. Fruits Eat 1 to 2 cups of fruits every day. Fruits contain very little fat but lots of nutrients. Protein foods Most adults need 5 to 6 ounces each day. Choose fish and lean poultry more often. Eat red meat and fried meats less often. Dried beans, tofu, and nuts are also good sources of protein. Dairy Most adults need 3 cups of milk and milk products a day. Choose low-fat or fat- free products from this food group. If you have problems digesting milk, try eating cheese or yogurt instead. Limit fats and oils, including those used in cooking. When you do use fats, choose oils that are liquid at room temperature (unsaturated fats). These include canola oil and olive oil. Avoid foods with trans fats, such as many fried foods, cookies, and snack foods. Where can you learn more? Log into your personal health record on [email or web address]://[email or web address] and enter D676 in the Education box to learn more about Learning About Dietary Guidelines. Current as of: May 09, 2017 Content Version: 11.9 8417-7012 [employer]. Care instructions adapted under license by your healthcare professional. If you have questions about a medical condition or this instruction, always ask your healthcare professional. [employer] disclaims any warranty or liability for your use of this information. in this encounter History of Present Illness * Chrissie Tatum PA-C - 02/22/2018 1:48 PM EST Formatting of this note may be different from the original. Subjective Patient ID: Carlita Osullivan is a 27 y.o. male. Headache This is a new problem. The current episode started in the past 7 days. The problem occurs intermittently. The problem has been waxing and waning. The pain is located in the occipital and temporal region. The pain does not radiate. The pain quality is not similar to prior headaches. The quality of the pain is described as throbbing and squeezing. The pain is at a severity of 6/10. The pain is moderate. Associated symptoms include neck pain, phonophobia and photophobia. Pertinent negatives include no abdominal pain, abnormal behavior, anorexia, back pain, blurred vision, coughing, dizziness, drainage, ear pain, eye redness, fever, hearing loss, insomnia, muscle aches, nausea, numbness, rhinorrhea, scalp tenderness, seizures, sinus pressure, sore throat, swollen glands, tingling or weakness.Nothing aggravates the symptoms. He has tried triptans and ketorolac injections for the symptoms. The treatment provided mild relief. His past medical history is significant for obesity. There is no history of cancer, cluster headaches, hypertension, immunosuppression, migraine headaches, migrainesin the family, pseudotumor cerebri, recent head traumas, sinus disease or TMJ. The following portions of the patient's history were reviewed and updated as appropriate: allergies, current medications, past family history, past medical history, past social history, past surgicalhistory and problem list. Vitals: 02/22/18 1312 BP: 130/83 BP Location: Left arm Patient Position: Sitting BP Cuff Size: Adult Pulse: 84 Resp: 16 Temp: 98.1 F (36.7 C) TempSrc: Oral SpO2: 97% Weight: (!) 138.3 kg (305 lb) Height: 6' Past Medical History: Diagnosis Date Avulsion fracture 11/15/2004 [facility]/Ti Noyola MD Ulnar Styloid Laceration of left forearm 01/24/2012 [facility]/David Ríos MD 2-1/2 in in length, without neorologic or motor deficit Open wound of wrist 02/02/2012 [facility]David R[facility]os MD W/O complication Tendon pain 07/05/2004 [facility]/Ti Noyola MD Tendon Transfusion, left Thumb Past Surgical History: Procedure Laterality Date WRIST SURGERY 2003 Dr. Noyola Patient's Medications New Prescriptions BACLOFEN (LIORESAL) 20 MG TABLET Take 1 (one) tablet (20 mg total) by mouth at bedtime . PREDNISONE (DELTASONE) 10 MG TABLET Take 4 tablets for three days, 3 tablets for 3 days, 2 tablets for 3 days, 1 tablet for 3 days and then every other day until gone. . Previous Medications SUMATRIPTAN (IMITREX) 100 MG TABLET Take 100 mg by mouth daily . Modified Medications No medications on file Discontinued Medications No medications on file Allergies as of 02/22/2018 (No Known Allergies) Review of Systems Constitutional: Negative for activity change, appetite change, fever and unexpected weight change. HENT: Negative for ear pain, hearing loss, rhinorrhea, sinus pressure and sore throat. Eyes: Positive for photophobia. Negative for blurred vision and redness. Respiratory: Negative for cough. Gastrointestinal: Negative for abdominal pain, anorexia and nausea. Musculoskeletal: Positive for neck pain. Negative for back pain. Neurological: Positive for headaches. Negative for dizziness, tingling, seizures, weakness, light-headedness and numbness. Psychiatric/Behavioral: The patient does not have insomnia. Objective Physical Exam Constitutional: He is oriented to person, place, and time. He appears well- developed and well-nourished. HENT: Head: Normocephalic and atraumatic. Right Ear: Hearing and tympanic membrane normal. Left Ear: Hearing and tympanic membrane normal. Nose: Nose normal. Mouth/Throat: Uvula is midline, oropharynx is clear and moist and mucous membranes are normal. Eyes: Conjunctivae and EOM are normal. Right eye exhibits no discharge. Left eye exhibits no discharge. Neck: Normal range of motion. Neck supple. Cardiovascular: Normal rate, regular rhythm and normal heart sounds. Pulmonary/Chest: Effort normal and breath sounds normal. Abdominal: Soft. Bowel sounds are normal. Musculoskeletal: Normal range of motion. Neurological: He is alert and oriented to person, place, and time. He has normal strength. No cranial nerve deficit. He displays a negative Romberg sign. rhomberg test normal Negative pronator drift test Skin: Skin is warm and dry. Psychiatric: He has a normal mood and affect. Judgment normal. Assessment/Plan: Problem List Items Addressed This Visit Other Acute intractable headache - Primary Today you are here to establish with our office. Your main concern today is the headache you have been experiencing. I am fairly certain this is all related to your job. 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 I would like you to take the medication as discussed duringthe visit. The Prednisone is a steroid that works on areas of inflammation. In this case, your neck. The Baclofen is a muscle relaxer, this will help you relax at night and help you sleep comfortably. Muscle relaxers are NOT to be used when operating machinery or when you attention is necessary on a task. They make you drowsy. Please note that it will take 6-8 weeks to fully recover. It is important that you do the exercisesprovided during the visit today. Should any new symptoms arise, I would like to see you back sooner. Otherwise, lets see you back in 8 weeks. Please fast for this visit as I would like to do blood work at that time. Thank you. Relevant Medications predniSONE (DELTASONE) 10 MG tablet baclofen (LIORESAL) 20 MG tablet For any new medications prescribed today, patient was educated about indications for the medication, how to take the medication and potential side effects of the medications. .me in this encounter* Manuel Enriquez LPN - 02/22/2018 3:48 PM EST .[facility] in this encounter* Chrissie Tatum PA-C - 03/06/2018 2:03 PM EST Subjective Patient ID: Carlita Osullivan is a 27 y.o. male. Patient is here sooner than advised follow up because his symptoms are getting worse. He has noticed new symptoms starting, he is forgetting conversations now. He concerned there is more going on now. Headache The current episode started 1 to 4 weeks ago (3 weeks today). The problem occurs constantly. Progression since onset: was getting better initially once starting the medication, but now it is getting worse. The pain is located in the right unilateral region. The pain quality is not similar to prior headaches. The quality of the pain is described as throbbing. The pain is at a severity of 7/10. Thepain is moderate. Associated symptoms include dizziness, a loss of balance, phonophobia and photophobia. Pertinent negatives include no abdominal pain, abnormal behavior, anorexia, back pain, blurredvision, coughing, drainage, ear pain, eye pain, eye redness, eye watering, facial sweating, fever, hearing loss, insomnia, muscle aches, nausea, neck pain, numbness, rhinorrhea, scalp tenderness, seizures, sinus pressure, sore throat, swollen glands, tingling, tinnitus, visual change, vomiting, weakness or weight loss. He has tried darkened room (dark quiet room and lying on the couch) for the symptoms. The treatment provided mild relief. His past medical history is significant for obesity. There is no history of cancer, cluster headaches, hypertension, immunosuppression, migraine headaches, migraines in the family, pseudotumor cerebri, recent head traumas, sinus disease or TMJ. The following portions of the patient's history were reviewed and updated as appropriate: allergies, current medications, past family history, past medical history, past social history, past surgicalhistory and problem list. [facility] reviewed briefly today, patient to go home and review records for dates of various diagnosis. We will review further at next visit. Vitals: 03/06/18 1351 BP: (!) 132/93 BP Location: Left arm Patient Position: Sitting BP Cuff Size: X-large Adult Pulse: 71 Resp: 16 Temp: 98.1 F (36.7 C) TempSrc: Oral SpO2: 97% Weight: (!) 140.6 kg (310 lb) Height: 6' Past Medical History: Diagnosis Date Avulsion fracture 11/15/2004 [facility]Ti Noyola MD Ulnar Styloid Laceration of left forearm 01/24/2012 [facility]/David Ríos MD 2-1/2 in in length, without neorologic or motor deficit Open wound of wrist 02/02/2012 [facility]/David Ríos MD W/O complication Tendon pain 07/05/2004 [facility]/Ti Noyola MD Tendon Transfusion, left Thumb Past Surgical History: Procedure Laterality Date WRIST SURGERY 2003 Dr. Noyola Medication List Accurate as of 03/06/18 3:21 PM. If you have any questions, ask your nurse or doctor. STOP taking these medications baclofen 20 MG tablet Commonly known as: LIORESAL Stopped by: Chrissie Tatum PA-C predniSONE 10 MG tablet Commonly known as: DELTASONE Stopped by: Chrissie Tatum PA-C SUMAtriptan 100 MG tablet Commonly known as: IMITREX Stopped by: Chrissie Tatum PA-C Allergies as of 03/06/2018 (No Known Allergies) Review of Systems Constitutional: Negative for activity change, appetite change, fever and weight loss. HENT: Negative for ear pain, hearing loss, rhinorrhea, sinus pressure, sore throat and tinnitus. Eyes: Positive for photophobia. Negative for blurred vision, pain and redness. Respiratory: Negative for cough, chest tightness and shortness of breath. Cardiovascular: Negative for chest pain and palpitations. Gastrointestinal: Negative for abdominal pain, anorexia, nausea and vomiting. Musculoskeletal: Negative for back pain and neck pain. Neurological: Positive for dizziness, headaches and loss of balance. Negative for tingling, seizures, weakness and numbness. Psychiatric/Behavioral: Positive for agitation. Negative for behavioral problems, confusion, decreased concentration, dysphoric mood, hallucinations, self-injury and suicidal ideas. The patient is not nervous/anxious, does not have insomnia and is not hyperactive. Objective e Physical Exam Constitutional: He is oriented to person, place, and time and well-developed, well-nourished, and in no distress. HENT: Head: Normocephalic and atraumatic. Eyes: EOM are normal. Neck: Normal range of motion. Neck supple. Cardiovascular: Normal rate and regular rhythm. Pulmonary/Chest: Effort normal and breath sounds normal. Musculoskeletal: Normal range of motion. He exhibits no edema. Neurological: He is alert and oriented to person, place, and time. He has normal sensation, normal strength, normal reflexes and intact cranial nerves. He is not disoriented. He displays no weakness,facial symmetry, normal speech and normal reflexes. No cranial nerve deficit or sensory deficit. Heexhibits normal muscle tone. He has a normal Cerebellar Exam, a normal Romberg Test and a normal Tandem Gait Test. He shows no pronator drift. Gait normal. Coordination normal. Skin: Skin is warm and dry. Psychiatric: Mood, memory, affect and judgment normal. Assessment/Plan: Problem List Items Addressed This Visit Other Acute intractable headache - Primary At this time, you are having worsening symptoms. This warrants further treatment, which I am strongly suggest he let the Emergency Department provide. We have tried NSAIDs, Triptans, steroids and muscle relaxers. All have failed. Now you are complaining of forgetfulness and worsening headache. You are extremely reluctant to go to the ER, but after discussing this with Dr. Nuñez, we agreed you would go. Your is picking you up to take you as I am strongly urging you not to drive until we have answers. I have called and [facility] is aware that you will be heading over to them once your arrives. It is my strong recommendation that you refrain from any activities that require your f ull attention (ie. Work, driving, operating machinery, etc). Altered mental status In regards to the headache you have been experiencing for the last 3 weeks. This warrants a large workup, best provided via the ER. You verbalized understanding of the severity of your symptoms and the need to rule out serious issues (mass, bleed, vessel abnormalities) and will go to the ER for thework up. For any new medications prescribed today, patient was educated about indications for the medication, how to take the medication and potential side effects of the medications. .me * Yue Glez LPN - 03/06/2018 1:52 PM EST Pt reports his headaches are getting worse. Pt reports he is taking the baclofen and has 2 doses ofthe prednisone left. Pt reports he is doing the recommended exercises. Pt reports pain to right side of head. Pt reports pain a 7 out of 10. Pt reports sensitivity to light and sounds. Pt reports pain is sharp constant pain. Pt reports laying down with the lights off gives him the most relief. Pt reports an increased thirst since starting the medication. Pt reports some family history of diabetes in this encounter* Chrissie Tatum PA-C - 04/22/2018 3:01 PM EDT Subjective Patient ID: Carlita Osullivan is a 27 y.o. male. HPI The following portions of the patient's history were reviewed and updated as appropriate: allergies, current medications, past family history, past medical history, past social history, past surgicalhistory and problem list. [facility] reviewed briefly today, patient to go home and review records for dates of various diagnosis. We will review further at next visit. Vitals: 04/22/18 1358 04/22/18 1438 BP: (!) 148/87 130/78 BP Location: Left arm Patient Position: Sitting BP Cuff Size: Adult Pulse: 86 Resp: 16 Temp: 97.9 F (36.6 C) SpO2: 98% Weight: (!) 136.5 kg (301 lb) Height: 6' 1 Past Medical History: Diagnosis Date Avulsion fracture 11/15/2004 [facility]/Ti Noyola MD Ulnar Styloid Laceration of left forearm 01/24/2012 [facility]/David Ríos MD 2-1/2 in in length, without neorologic or motor deficit Open wound of wrist 02/02/2012 [facility]/David Ríos MD W/O complication Tendon pain 07/05/2004 [facility]/Ti Noyola MD Tendon Transfusion, left Thumb Past Surgical History: Procedure Laterality Date WRIST SURGERY 2003 Dr. Noyola Medication List as of 04/22/2018 3:14 PM You have not been prescribed any medications. Allergies as of 04/22/2018 (No Known Allergies) Review of Systems Objective Physical Exam Assessment/Plan: Hypertension Normal BP is 110/70. For every 20 point elevation of the systolic (top number) the risk of complications of elevated BP double. For every 10 points above 70 (bottom number) on the diastolic the risk of complication double. So, someone with a BP of 158/85 is 8 times more likely to have a complication of heart attack, stroke, vascular disease, retinal disease, than someone with a BP of 110/70. Eat meat, vegetables, nuts and seeds, some fruit, very little starch and absolutely no sugar. If you can grow it or kill it, then that's what you should be eating..... Chicken, turkey, fish pork, beef, ALL vegetables and fruit. If it is processed or you can not pronounce the ingredients, do not eat it! Shop the outside perimeter of the grocery store. Listen to your body, if you are hungry all the time you may need to increase your intake of healthyveggies and small healthy snacks. Eat whole, healthy foods and you won't need to count calories. Increase your activity level; the more you move your body the healthier you will be and the better you will feel! Diet and Exercise is not a fad, it really works! Migraine Today you are here for follow up on chronic migraines. At this time, you have them controlled for the most part. However, I would like to do a home sleep study in the near future. Please take this into consideration. We do not need to do it immediately, but this would be the next step. It will hopefully give us a reason as to why you're having the headaches like you are. You agreed to treatment plan and verbalized understanding. Goals Blood Pressure < 130/80 High blood pressure makes your heart work too hard. It can cause heart attack, stroke and kidney disease. Maintain an Active Lifestyle Mild to moderate exercise under the guidance of your physician is usually safe and encouraged. For any new medications prescribed today, patient was educated about indications for the medication, how to take the medication and potential side effects of the medications. * Chrissie Tatum PA-C - 04/22/2018 3:01 PM EDT Subjective Patient ID: Carlita Osullivan is a 27 y.o. male. HPI The following portions of the patient's history were reviewed and updated as appropriate: allergies, current medications, past family history, past medical history, past social history, past surgicalhistory and problem list. [facility] [place] today, patient to go home and review records for dates of various diagnosis. We will review further at next visit. Vitals: 04/22/18 1358 04/22/18 1438 BP: (!) 148/87 130/78 BP Location: Left arm Patient Position: Sitting BP Cuff Size: Adult Pulse: 86 Resp: 16 Temp: 97.9 F (36.6 C) SpO2: 98% Weight: (!) 136.5 kg (301 lb) Height: 6' 1 Past Medical History: Diagnosis Date Avulsion fracture 11/15/2004 [facility]/Ti Noyola MD Ulnar Styloid Laceration of left forearm 01/24/2012 [facility]/David Ríos MD 2-1/2 in in length, without neorologic or motor deficit Open wound of wrist 02/02/2012 [facility]/David Ríos MD W/O complication Tendon pain 07/05/2004 [facility]/Ti Noyola MD Tendon Transfusion, left Thumb Past Surgical History: Procedure Laterality Date WRIST SURGERY 2003 Dr. Noyola Medication List as of 04/22/2018 3:13 PM You have not been prescribed any medications. Allergies as of 04/22/2018 (No Known Allergies) Review of Systems Constitutional: Negative for activity change, appetite change and fever. HENT: Negative for ear pain, hearing loss, rhinorrhea, sinus pressure, sore throat and tinnitus. Eyes: Negative for photophobia, pain, redness and visual disturbance. Respiratory: Negative for cough, chest tightness and shortness of breath. Cardiovascular: Negative for chest pain and palpitations. Gastrointestinal: Negative for abdominal pain, nausea and vomiting. Musculoskeletal: Negative for back pain and neck pain. Neurological: Positive for headaches. Negative for dizziness, seizures, weakness and numbness. Psychiatric/Behavioral: Negative for agitation, behavioral problems, confusion, decreased concentration, dysphoric mood, hallucinations, self-injury and suicidal ideas. The patient is not nervous/anxious and is not hyperactive. Objective Physical Exam Constitutional: He is oriented to person, place, and time. He appears well- developed and well-nourished. HENT: Head: Normocephalic and atraumatic. Right Ear: Hearing and tympanic membrane normal. Left Ear: Hearing and tympanic membrane normal. Nose: Nose normal. Mouth/Throat: Uvula is midline, oropharynx is clear and moist and mucous membranes are normal. Eyes: Conjunctivae and EOM are normal. Right eye exhibits no discharge. Left eye exhibits no discharge. Neck: Normal range of motion. Neck supple. Cardiovascular: Normal rate, regular rhythm and normal heart sounds. Pulmonary/Chest: Effort normal and breath sounds normal. Abdominal: Soft. Bowel sounds are normal. Musculoskeletal: Normal range of motion. Neurological: He is alert and oriented to person, place, and time. He has normal strength. No cranial nerve deficit. He displays a negative Romberg sign. Skin: Skin is warm and dry. Psychiatric: He has a normal mood and affect. Judgment normal. Nursing note and vitals reviewed. Assessment/Plan: Hypertension Normal BP is 110/70. For every 20 point elevation of the systolic (top number) the risk of complications of elevated BP double. For every 10 points above 70 (bottom number) on the diastolic the risk of complication double. So, someone with a BP of 158/85 is 8 times more likely to have a complication of heart attack, stroke, vascular disease, retinal disease, than someone with a BP of 110/70. Eat meat, vegetables, nuts and seeds, some fruit, very little starch and absolutely no sugar. If you can grow it or kill it, then that's what you should be eating..... Chicken, turkey, fish pork, beef, ALL vegetables and fruit. If it is processed or you can not pronounce the ingredients, do not eat it! Shop the outside perimeter of the grocery store. Listen to your body, if you are hungry all the time you may need to increase your intake of healthyveggies and small healthy snacks. Eat whole, healthy foods and you won't need to count calories. Increase your activity level; the more you move your body the healthier you will be and the better you will feel! Diet and Exercise is not a fad, it really works! Migraine Today you are here for follow up on chronic migraines. At this time, you have them controlled for the most part. However, I would like to do a home sleep study in the near future. Please take this into consideration. We do not need to do it immediately, but this would be the next step. It will hopefully give us a reason as to why you're having the headaches like you are. You agreed to treatment plan and verbalized understanding. Goals None For any new medications prescribed today, patient was educated about indications for the medication, how to take the medication and potential side effects of the medications. in this encounter Assessments Diagnosis Acute intractable headache, unspecified headache type- Primary Diagnosis Acute intractable headache, unspecified headache type- Primary Altered mental status, unspecified altered mental status type Diagnosis Hypertension, unspecified type- Primary Other migraine without status migrainosus, not intractable Summary Purpose Family History No Family History Records FoundNo Family History Records Found Advance Directives No Advanced Directives Records Found Patient has advance care planning documents on file. For more information, please contact: [place] [address] No Advanced Directives Records Found Additional Source Comments Reason for Visit (unrecogniz ed section and content) Reason Comments Headache Assessment & Plan Note - Chrissie Tatum PA-C - 02/22/2018 1:38 PM ESTAssessment & Plan Note - Chrissie Tatum PA-C - 03/06/2018 3:16 PM EST Miscellaneous Notes (unrecog nized section and content) Associated Problem(s): Acute intractable headache Today you are here to establish with our office. Your main concern today is the headache you have been experiencing. I am fairly certain this is all related to your job. 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 I would like you to take the medication as discussed during the visit. The Prednisone is a steroid that works on areas of inflammation. In this case, your neck. The Baclofen is a muscle relaxer, this will help you relax at night and help you sleep comfortably. Muscle relaxers are NOT to be used when operating machinery or when you attention is necessary on a task. They make you drowsy. Please note that it will take 6-8 weeks to fully recover. It is important that you do the exercises provided during the visit today. Should any new symptoms arise, I would like to see you back sooner. Otherwise, lets see you back in 8 weeks. Please fast for this visit as I would like to do blood work at that time. Thank you.in this encounter Associated Problem(s): Altered mental status In regards to the headache you have been experiencing for the last 3 weeks. This warrants a large workup, best provided via the ER. You verbalized understanding of the severity of your symptoms and the need to rule out serious issues (mass, bleed, vessel abnormalities) and will go to the ER for the work up. Associated Problem(s): Acute intractable headache At this time, you are having worsening symptoms. This warrants further treatment, which I am strongly suggest he let the Emergency Department provide. We have tried NSAIDs, Triptans, steroids and muscle relaxers. All have failed. Now you are complaining of forgetfulness and worsening headache. You are extremely reluctant to go to the ER, but after discussing this with Dr. Nuñez, we agreed you would go. Your is picking you up to take you as I am strongly urging you not to drive until we have answers. I have called and [facility] is aware that you will be heading over to them once your arrives. It is my strong recommendation that you refrain from any activities that require your full attention (ie. Work, driving, operating machinery, etc). in this encounter Associated Problem(s): Migraine Today you are here for follow up on chronic migraines. At this time, you have them controlled for the most part. However, I would like to do a home sleep study in the near future. Please take this into consideration. We do not need to do it immediately, but this would be the next step. It will hopefully give us a reason as to why you're having the headaches like you are. You agreed to treatment plan and verbalized understanding. Associated Problem(s): Hypertension Normal BP is 110/70. For every 20 point elevation of the systolic (top number) the risk of complications of elevated BP double. For every 10 points above 70 (bottom number) on the diastolic the risk of complication double. So, someone with a BP of 158/85 is 8 times more likely to have a complication of heart attack, stroke, vascular disease, retinal disease, than someone with a BP of 110/70. Eat meat, vegetables, nuts and seeds, some fruit, very little starch and absolutely no sugar. If you can grow it or kill it, then that's what you should be eating..... Chicken, turkey, fish pork, beef, ALL vegetables and fruit. If it is processed or you can not pronounce the ingredients, do not eat it! Shop the outside perimeter of the grocery store. Listen to your body, if you are hungry all the time you may need to increase your intake of healthy veggies and small healthy snacks. Eat whole, healthy foods and you won't need to count calories. Increase your activity level; the more you move your body the healthier you will be and the better you will feel! Diet and Exercise is not a fad, it really works! in this encounter (unrecognized sect ion and content) No Status Records FoundNo Status Records Found INFORMATION SOURCE (unrecogn ized section and content) DATE CREATED AUTHOR AUTHOR'S ORGANIZ ATION 05/02/2018 [facility] FOR RECORDS PERTAINING TO PATIENTS WHO ARE OR HAVE BEEN ENROLLED IN A CHEMICAL DEPENDENCY/SUBSTANCEABUSE PROGRAM, SOME INFORMATION MAY BE OMITTED. This clinical summary was aggregated from multiple sources. Caution should be exercised in using it in the provision of clinical care. This summary normalizes information from multiple sources, and as a consequence, information in this document may materially change the coding, format and clinical context of patient data. In addition, data may be omitted in some cases. CLINICAL DECISIONS SHOULD BE BASED ON THE PRIMARY CLINICAL RECORDS. [employer] provides no warranty or guarantee of the accuracy or completeness of information in this document.
[2023-03-02 12:25] LABS: Bacteria 0 SEEN /hpf (None Seen); Mucous, Urine 0 SEEN /hpf (<or=2+); Red Blood Cells-Urine 0 SEEN /hpf (0-5); Squamous Epithelial Cells - UA 0 SEEN /hpf (0-5); White Blood Cells 0 SEEN /hpf (0-5)
[2023-03-02 15:33] LABS: Absolute Lymphocyte Count 2.85 X10^3/uL (0.83-4.51); Absolute Neutrophil Count 4.3 X10^3/uL (2.0-7.7); Basophil# 0.09 X10^3/uL; Basophil% 1.1 % (0-1); Eosinophil# 0.16 X10^3/uL; Hematocrit 48.4 % (40-54); Lymphocyte # 2.85 X10^3/ul (0.83-4.51); Lymphocyte % 35.1 % (19-41); Mean Corp Hgb Conc 33.1 g/dL (32-36); Mean Corpuscular Hgb 29.5 pg (27.0-32.0); Mean Corpuscular Volume 89.3 fL (80-94); Mean Platelet Vol. 10.1 fl (6.2-12.0); Monocyte# 0.67 X10^3/uL; Monocyte% 8.2 % (0-10); NRBC Flagged by Analyzer 0 % (0-5); Neutrophil # 4.31 X10^3/uL (2.7-7.7); Platelet Count 267 K/mm3 (150-450); RBC Distribution Width CV 13.2 % (11.6-14.6); RBC Distribution Width SD 42.8 fl (35.1-43.9); Red Blood Count 5.42 M/mm3 (4.6-6.2); White Blood Count 8.1 K/mm3 (4.4-11.0)
[2023-03-02 16:07] LABS: ALB/GLOB Ratio 1.1 RATIO (0.9-2.4); AST(SGOT) 36 U/L (15-37); Alanine Aminotransfer ALT/SGPT 105 U/L (16-61); Albumin, Serum 3.9 g/dL (3.2-5.0); Alkaline Phosphatase 53 U/L (45-117); Anion Gap 5 (5-15); BUN 15 mg/dL (7-18); BUN/Creat Ratio 15.5 RATIO (10-20); Calcium,Total 9.4 mg/dL (8.5-10.1); Chloride 105 mmol/L (98-107); Cholesterol 174 mg/dL (200); Creatinine, Serum 0.97 mg/dL (0.70-1.30); EST Glomerular Filtration Rate 94 mL/min (>60); Est Glom Filt Rate - Afr Amer 114 mL/min (>60); Globulin 3.7 g/dL (2.2-4.2); Glucose 77 mg/dL (74-106); High Density Lipoprotein 39 mg/dL; Magnesium 2.6 mg/dL (1.6-2.6); Potassium 4.3 mmol/L (3.5-5.1); Protein, Total 7.6 g/dL (6.4-8.2); Sodium Level 140 mmol/L (136-145); T4 Free Direct 0.99 ng/dL (0.76-1.46); Thyroid Stim Hormone (TSH) 1.54 uIU/mL (0.358-3.74); Triglycerides 210 mg/dL; Very Low Density Lipoprotein 42 mg/dL (5-40)
[2023-03-02 16:09] LABS: Color, Urine Yellow (Yellow); Glucose, Dipstick Normal (Normal); Ketone-Dipstick Negative (Negative); Leukocyte Esterase-Dipstick 25 /ul (Negative); Nitrite-Dipstick Negative (Negative); Occult Blood-Urine 10 /ul (Negative); Protein-Dipstick 30 mg/dl (Negative); Specific Gravity, Urine 1.015 (1.002-1.030); Urine Bilirubin Dipstick Negative (Negative); Urine Clarity Clear (Clear); Urine Urobilinogen Normal (Normal); Urine pH 6.5 (5.0 - 8.0)
[2023-03-02 16:14] LABS: Vitamin B12 477 pg/mL (211-911); Vitamin D,25 Hydroxy 35.1 ng/mL
[2023-03-02 20:05] LABS: Hepatitis B Surface Antibody Reactive
[2023-03-06 12:44] LABS: Hepatitis B Surface Antigen Non-Reactive (Nonreactive); Hepatitis C Antibody Non-Reactive (Nonreactive)
== END | disposition home or self-care (01) ==
LOC: MFPLAB 12:18
PROVIDERS: PCP Family Medicine; Visit Provider Family Medicine
DX: R79.89 Other specified abnormal findings of blood chemistry (principal); R53.83 Other fatigue; I10 Essential (primary) hypertension
CPT/HCPCS: 36415; 80053; 80061; 81001; 82306; 82607; 83735; 84439; 84443; 85025; 86706; 86803; 87340

== ENCOUNTER → 2023-04-04 | Outpatient (CLI) | payer BC, SELFPAY ==
--- NOTE | 2023-04-04 15:34 | US_ITS ---
STUDY: RENAL ULTRASOUND - COMPLETE REASON FOR EXAM: Male, 32 years old. Early onset HTN TECHNIQUE: Ultrasound evaluation of the kidneys was performed with real-time and static rodney-scale imaging. COMPARISON: None. FINDINGS: RIGHT KIDNEY: Normal location of the right kidney, which is normal in size. The right kidney measures 13.1 cm x 6.1 cm x 5.6 cm. There is a normal cortex of the right kidney. The renal cortex measures 1.7 cm. There is no right renal mass or cyst. There are no right renal calculi. There is no right hydronephrosis. DISTAL RIGHT URETER: There is non-visualization of the distal right ureter. There is no demonstrated right ureterovesical junction calculus. There is no demonstrated right ureteral jet. LEFT KIDNEY: Normal location of the left kidney, which is normal in size. The left kidney measures 14 cm x 5.7 cm x 7.5 cm. There is a normal cortex of the left kidney. The renal cortex measures 2.1 cm. There is no left renal mass or cyst. There are no left renal calculi. There is no left hydronephrosis. DISTAL LEFT URETER: There is non-visualization of the distal left ureter. There is no demonstrated left ureterovesical junction calculus. There is no demonstrated left ureteral jet. BLADDER: The distended urinary bladder has a volume of 67.2 ml. The empty urinary bladder has a volume of 2 ml. There is a normal wall thickness of the distended urinary bladder. There is no demonstrated mass within the urinary bladder. There are no demonstrated bladder calculi. US/Kidney and Bladder IMPRESSION: Normal ultrasound of the kidneys and urinary bladder. Electronically Signed: Royer Turner MD at 10:27 EST ,
== END | disposition home or self-care (01) ==
PROVIDERS: PCP Family Medicine; Referring Provider Family Medicine; Visit Provider Family Medicine
DX: I10 Essential (primary) hypertension (principal)
CPT/HCPCS: 76770

== ENCOUNTER → 2024-12-05 | Outpatient (CLI) | payer BC, SELFPAY ==
--- NOTE | 2024-12-05 10:11 | RAD_ITS ---
PROCEDURE: SHOULDER MIN 2 VIEWS 12/05/2024 REASON FOR EXAM: PAIN, TRUAMA, FELL YESTERDAY TECHNIQUE: Procedure Code: RADSH Modality: DX Procedure: SHOULDER MIN 2 VIEWS Laterality: Left COMPARISON: None. RAD/Shoulder min 2 Views IMPRESSION: Mild degenerative changes are seen at the left glenohumeral joint, without appa rent joint narrowing. The left glenohumeral joint shows no more than minimal degenerative changes, an d no joint narrowing is associated. Mild thoracic spine degenerative changes are seen. No acute fracture or dislocation is evident. If clinical concern persists, short-term follow-up imaging may be obtained to r ule out a currently occult fracture. Reading Location: [id number]
== END | disposition home or self-care (01) ==
LOC: MTRAD 10:11
PROVIDERS: PCP Family Medicine; Referring Provider Family Medicine; Visit Provider Family Medicine
DX: M25.512 Pain in left shoulder (principal)
CPT/HCPCS: 73030